=== PATIENT | male | born 1995 | race Caucasian/White ===

== ENCOUNTER 2017-01-24 20:39 | Emergency (ER) | payer BC ==
--- NOTE | 2017-01-24 21:00 | UC ---
Complaint Male HPI - HPI Summary HPI Summary: 21 year old female presents with complains of left groin pain. I will send him to the ER to rule out hernia. - History of Current Complaint Chief Complaint: UCGeneralIllness Stated Complaint: GROIN PAIN Time Seen by Provider: 01/24/17 20:58 Hx Obtained From: Patient Onset/Duration: Sudden Onset Timing: Constant Severity Initially: Moderate Severity Currently: Moderate Pain Scale Used: 0-10 Numeric - 7 - Allergies/Home Medications Allergies/Adverse Reactions: Allergies Allergy/AdvReac Type Severity Reaction Status Date / Time No Known Allergies Allergy Verified 01/24/17 20:44 Home Medications: Home Medications NK [No Home Medications Reported] 01/24/17 [History Confirmed 01/24/17] PMH/Surg Hx/FS Hx/Imm Hx Previously Healthy: Yes - Surgical History Surgical History: None - Social History Alcohol Use: Rare Substance Use Type: None Smoking Status (MU): Never Smoked Tobacco - Immunization History Most Recent Influenza Vaccination: NO Review of Systems Constitutional: Negative Skin: Negative Eyes: Negative ENT: Negative Respiratory: Negative Cardiovascular: Negative Gastrointestinal: Abdominal Pain, Other - left groin pain Genitourinary: Negative Motor: Negative Neurovascular: Negative Musculoskeletal: Negative Neurological: Negative Psychological: Negative All Other Systems Reviewed And Are Negative: Yes Physical Exam Triage Information Reviewed: Yes Vital Signs: Initial Vital Signs Temp 36.8 C 01/24/17 20:44 Pulse 70 01/24/17 20:44 Resp 16 01/24/17 20:44 BP 115/61 01/24/17 20:44 Pulse Ox 100 01/24/17 20:44 Vital Signs Reviewed: Yes Eye Exam: Normal ENT Exam: Normal Dental Exam: Normal Neck exam: Normal Neck: Positive: 1 Respiratory Exam: Normal Cardiovascular Exam: Normal Abdomen Description: Positive: Other: - left groin pain Musculoskeletal Exam: Normal Neurological Exam: Normal Psychological Exam: Normal Skin Exam: Normal Complaint Male Course/Dx - Differential Dx/Diagnosis Provider Diagnoses: left groin pain. left inguinal pain Discharge - Discharge Plan Condition: Stable Disposition: OTHER Discharge Disposition Comment: patient suggested to go to the er. Referrals: Ramy Maldonado MD [Primary Care Provider] - Additional Instructions: patient suggested to go to the er for left groin pain and hernia rule out
== END 2017-01-24 21:10 ==
LOC: UCCORT 20:39
DX: R10.32 Left lower quadrant pain (principal)
CPT/HCPCS: 99202; G0463